=== PATIENT | female | born 1960 | race Caucasian/White ===

== ENCOUNTER 2024-08-14 21:46 | Emergency (ER) | payer BC ==
[~2024-08-14] VITALS: Ht 162.6 cm; Wt 56.7 kg
[2024-08-14] MEDS: TRAMADOL HCL 50 MG TABLET PO ONE (22:30)
[2024-08-14] MEDS ORDERED: TRAMADOL HCL 50 MG TABLET ONE (22:35)
[2024-08-14] MEDS ORDERED: TRAM50TA2 PO (23:16)
[2024-08-14 23:42] VITALS: BP 99/54; TEMP 97.9; O2SAT 98
== END 2024-08-14 23:42 | disposition home or self-care (01) ==
LOC: ER 21:49
DX: S22.32XA Fracture of one rib, left side, initial encounter for closed fracture (principal); S50.812A Abrasion of left forearm, initial encounter; Z79.899 Other long term (current) drug therapy; Z88.1 Allergy status to other antibiotic agents; Z88.5 Allergy status to narcotic agent; W10.9XXA Fall (on) (from) unspecified stairs and steps, initial encounter; Y93.01 Activity, walking, marching and hiking; Y92.89 Other specified places as the place of occurrence of the external cause; Y99.8 Other external cause status
CPT/HCPCS: 71100-TC